=== PATIENT | female | born 1970 | race Native Hawaiian/Other Pacific Islander ===

== ENCOUNTER 2017-02-05 16:26 | Inpatient (IN) | payer OTHER | END 2017-02-23 10:40 | disposition still patient (30) | LOC: PAVB 16:26 | PROVIDERS: ADMIT Internal Medicine | DX: Z51.89 Encounter for other specified aftercare (principal) ==

== ENCOUNTER 2017-02-23 10:46 | Inpatient (IN) | payer OTHER | END 2017-03-26 12:57 | disposition still patient (30) | LOC: PAVB 10:46 | PROVIDERS: ADMIT Internal Medicine ==

== ENCOUNTER 2017-03-26 13:52 | Inpatient (IN) | payer OTHER | END 2017-04-25 09:21 | disposition still patient (30) | LOC: PAVB 13:52 | PROVIDERS: ADMIT Internal Medicine ==

== ENCOUNTER 2017-04-25 09:44 | Inpatient (IN) | payer OTHER | END 2017-05-26 09:31 | disposition still patient (30) | LOC: PAVB 09:44 | PROVIDERS: ADMIT Internal Medicine ==

== ENCOUNTER 2017-05-26 10:07 | Inpatient (IN) | payer OTHER | END 2017-06-26 09:50 | disposition still patient (30) | LOC: PAVB 10:07 | PROVIDERS: ADMIT Internal Medicine ==

== ENCOUNTER 2017-05-26 13:11 | Outpatient (CLI) | payer OTHER | END 2017-05-26 20:16 | disposition home or self-care (01) | LOC: LAB 13:11 → RAD 13:11 → LAB 20:16 | DX: Z43.1 Encounter for attention to gastrostomy (principal) | CPT/HCPCS: 87070; 87077; 87186; 87205 ==

== ENCOUNTER 2017-06-26 10:42 | Inpatient (IN) | payer OTHER | END 2017-07-24 09:20 | disposition still patient (30) | LOC: PAVB 10:42 | PROVIDERS: ADMIT Internal Medicine ==

== ENCOUNTER 2017-07-24 10:02 | Inpatient (IN) | payer OTHER | END 2017-08-24 08:00 | disposition still patient (30) | LOC: PAVB 10:02 | PROVIDERS: ADMIT Internal Medicine ==

== ENCOUNTER 2017-08-24 09:00 | Inpatient (IN) | payer OTHER | END 2017-09-23 09:05 | disposition still patient (30) | LOC: PAVB 09:00 | PROVIDERS: ADMIT Internal Medicine ==

== ENCOUNTER 2017-08-25 19:50 | Outpatient (CLI) | payer OTHER | END 2017-08-25 23:40 | disposition home or self-care (01) | LOC: LAB 19:50 | DX: R30.0 Dysuria (principal) | CPT/HCPCS: 81000 ==

== ENCOUNTER 2017-09-23 09:46 | Inpatient (IN) | payer OTHER | END 2017-10-24 08:53 | disposition still patient (30) | LOC: PAVB 09:46 | PROVIDERS: ADMIT Internal Medicine ==

== ENCOUNTER 2017-10-24 09:23 | Inpatient (IN) | payer OTHER | END 2017-11-23 14:20 | disposition still patient (30) | LOC: PAVB 09:23 | PROVIDERS: ADMIT Internal Medicine ==

== ENCOUNTER 2017-11-23 14:55 | Inpatient (IN) | payer OTHER | END 2017-12-24 08:00 | disposition still patient (30) | LOC: PAVB 14:55 | PROVIDERS: ADMIT Internal Medicine ==

== ENCOUNTER 2017-12-24 09:00 | Inpatient (IN) | payer OTHER | END 2018-01-24 10:19 | disposition still patient (30) | LOC: PAVB 09:00 | PROVIDERS: ADMIT Internal Medicine ==

== ENCOUNTER 2018-01-24 11:03 | Inpatient (IN) | payer OTHER | END 2018-02-23 09:34 | disposition still patient (30) | LOC: PAVB 11:03 | PROVIDERS: ADMIT Internal Medicine ==

== ENCOUNTER 2018-02-23 10:18 | Inpatient (IN) | payer OTHER | END 2018-03-26 08:48 | disposition still patient (30) | LOC: PAVB 10:18 | PROVIDERS: ADMIT Internal Medicine ==

== ENCOUNTER 2018-03-26 09:57 | Inpatient (IN) | payer OTHER | END 2018-04-25 08:33 | disposition still patient (30) | LOC: PAVB 09:57 | PROVIDERS: ADMIT Internal Medicine ==

== ENCOUNTER 2018-04-25 09:18 | Inpatient (IN) | payer OTHER | END 2018-05-26 11:06 | disposition still patient (30) | LOC: PAVB 09:18 | PROVIDERS: ADMIT Internal Medicine ==

== ENCOUNTER 2018-05-26 11:27 | Inpatient (IN) | payer OTHER | END 2018-06-26 10:55 | disposition still patient (30) | LOC: PAVB 11:27 | PROVIDERS: ADMIT Internal Medicine ==

== ENCOUNTER 2018-06-26 11:17 | Inpatient (IN) | payer OTHER | END 2018-07-24 10:20 | disposition still patient (30) | LOC: PAVB 11:17 | PROVIDERS: ADMIT Internal Medicine ==

== ENCOUNTER 2018-07-24 11:13 | Inpatient (IN) | payer OTHER | END 2018-08-24 10:40 | disposition still patient (30) | LOC: PAVB 11:13 | PROVIDERS: ADMIT Internal Medicine ==

== ENCOUNTER 2018-08-24 11:22 | Inpatient (IN) | payer OTHER | END 2018-09-23 11:17 | disposition still patient (30) | LOC: PAVB 11:22 | PROVIDERS: ADMIT Internal Medicine ==

== ENCOUNTER 2018-09-23 12:26 | Inpatient (IN) | payer OTHER | END 2018-10-24 08:38 | disposition still patient (30) | LOC: PAVB 12:26 | PROVIDERS: ADMIT Internal Medicine ==

== ENCOUNTER 2018-10-24 09:31 | Inpatient (IN) | payer OTHER | END 2018-11-23 09:38 | disposition still patient (30) | LOC: PAVB 09:31 | PROVIDERS: ADMIT Internal Medicine ==

== ENCOUNTER 2018-11-23 11:28 | Inpatient (IN) | payer OTHER | END 2018-12-24 10:35 | disposition still patient (30) | LOC: PAVB 11:28 | PROVIDERS: ADMIT Internal Medicine ==

== ENCOUNTER 2018-11-27 05:17 | Outpatient (CLI) | payer OTHER ==
[2018-11-27 06:58] LABS: PLATELET COUNT 154 K/uL (152-353)
== END 2018-11-27 20:39 | disposition home or self-care (01) ==
LOC: LAB 05:17
PROVIDERS: Internal Medicine
DX: R60.9 Edema, unspecified (principal); R53.83 Other fatigue; E43 Unspecified severe protein-calorie malnutrition
CPT/HCPCS: 36415; 80053; 84134; 85027

== ENCOUNTER 2018-12-24 11:20 | Inpatient (IN) | payer OTHER | END 2019-01-24 16:26 | disposition still patient (30) | LOC: PAVB 11:20 | PROVIDERS: ADMIT Internal Medicine ==

== ENCOUNTER 2018-12-24 22:46 | Outpatient (CLI) | payer OTHER | END 2018-12-24 23:50 | disposition home or self-care (01) | LOC: RAD 22:46 | DX: M25.512 Pain in left shoulder (principal); R60.9 Edema, unspecified ==

== ENCOUNTER 2019-01-24 17:09 | Inpatient (IN) | payer OTHER | END 2019-02-18 14:00 | disposition home or self-care (01) | LOC: PAVB 17:09 | PROVIDERS: ADMIT Internal Medicine ==